=== PATIENT | male | born 1985 | race Caucasian/White ===

== ENCOUNTER 2022-12-16 18:52 | Emergency (ER) | payer MEDICAID, MEDICARE ==
[~2022-12-16] VITALS: Ht 170.2 cm; Wt 77.0 kg
[2022-12-16 18:59] VITALS: O2SAT 100
[2022-12-16 19:42] VITALS: BP 156/75
[2022-12-16] MEDS: IBUPROFEN 600MG TABLET PO ONE (19:42)
[2022-12-16] MEDS: LIDOCAINE HCL/PF 1% 10 MG/ML 5ML VIAL INFIL ONE (19:42)
[2022-12-16] MEDS: BACITRACIN ZINC OINT UDPKT TOP ONE (19:42)
[2022-12-16] MEDS ORDERED: IBUP-2029 PO (20:39)
[2022-12-16 21:23] VITALS: PULSE 100; RESP 20; TEMP 98.3
== END 2022-12-16 21:26 | disposition home or self-care (01) ==
LOC: ER 18:52
DX: S51.812A Laceration without foreign body of left forearm, initial encounter (principal); S50.812A Abrasion of left forearm, initial encounter; W26.8XXA Contact with other sharp object(s), not elsewhere classified, initial encounter; Y93.89 Activity, other specified; Y92.89 Other specified places as the place of occurrence of the external cause; Y99.8 Other external cause status
CPT/HCPCS: 12002; 99283; J3490; Z7610 ×3